=== PATIENT | male | born 1945 | race Caucasian/White ===

== ENCOUNTER 2017-02-08 07:41 | Day surgery (SDC) | payer BC ==
--- NOTE | 2017-02-07 21:45 | Pre-op HX & Phy Repo 2 SIG ---
DATE OF ADMISSION: 02/08/2017 PERTINENT HISTORY: The patient os a 71-year-old male with history of several months of increasing left inguinal hernia bulge with some pain. No signs or symptoms suggestive of small bowel obstruction. For that reason, his attending physician, Dr. Curry referred to me for evaluation and surgical care. PAST MEDICAL HISTORY: Pertinent for HIV, viral load is undetectable, T-cells are over 500 and history of hypertension. MEDICATIONS: Levothyroxine 75 mcg once a day, Epzicom 600-300 mg once a day, Norvir 100 mg two tabs a day, tamsulosin 0.4 mg once a day, Crestor 40 mg once a day, lisinopril 20 mg once a day, hydrochlorothiazide 12.5 mg once a day, compounded testosterone daily topical use in the morning, aspirin 81 mg daily and Lexiva 700 mg three times a day. PHYSICAL EXAMINATION: GENERAL: Well-developed middle-aged male, in no distress. VITAL SIGNS: Blood pressure was 100/60, temperature is 97.8 degrees, pulse is 70, and respirations 18. Weight 132 pounds. Height 66 inches. HEENT: Normal. NECK: Supple. LUNGS: Clear. HEART: Rhythmic and regular. No murmurs. No rubs. ABDOMEN: Soft and flat. Bowel sounds are normoactive. There is a reducible left inguinal hernia. GENITALIA: Normal male. Both testes descended. Rectal normal tone. No masses. Heme-negative stool. EXTREMITIES: Good range of motion. No edema or cyanosis. LABORATORY AND DIAGNOSTIC DATA: Electrocardiogram is left anterior fascicular block and poor R-wave progression, similar to prior EKGs. Laboratory analysis from 12/22/2016 is within normal limits. IMPRESSION: 1. Left inguinal hernia. 2. Human immunodeficiency virus infection. 3. Hypertension. PLAN: The patient is admitted to undergo an outpatient repair of a left inguinal hernia. He understands the nature of the procedure, the indications, risks, the benefits, and the possible complications and he wishes to proceed. Bari Porter M.D. DR: GUILLERMINA JOB#: [id number] CC:
[2017-02-08] VITALS (7 sets, daily range): BP systolic 112–140; BP diastolic 52–68
[~2017-02-08] VITALS: Ht 167.6 cm; Wt 59.0 kg
[2017-02-08] MEDS ORDERED: LEVOTHYROXINE75 MCG ORAL (08:44)
[2017-02-08] MEDS ORDERED: TAMSULOSIN HCL0.4 MG ORAL (08:44)
[2017-02-08] MEDS ORDERED: CENTRUM SILVER1 EAC4 PO (08:44)
[2017-02-08] MEDS ORDERED: CRESTOR40 MG ORAL (08:44)
[2017-02-08] MEDS ORDERED: XALATAN2.5 ML LEFT EYE (08:44)
[2017-02-08] MEDS ORDERED: FISH OIL CAP1000 MG ORAL (08:44)
[2017-02-08] MEDS ORDERED: ABACAVIR-LAMIV1 EAC1 PO (08:44)
[2017-02-08] MEDS ORDERED: NORVIR100 MG ORAL (08:44)
[2017-02-08] MEDS ORDERED: LEXIVA700 MG ORAL (08:44)
[2017-02-08] MEDS ORDERED: HYDROCHLOROTH12.5 M2 ORAL (08:44)
[2017-02-08] MEDS ORDERED: LISINOPRIL20 MG ORAL (08:44)
[2017-02-08] MEDS ORDERED: CALCIUM500 M2 PO (08:44)
[2017-02-08] MEDS ORDERED: GLUCOSAMIN-CHO1 EAC1 PO (08:44)
[2017-02-08] MEDS ORDERED: VITAMIN D400 INTLU ORAL (08:44)
[2017-02-08] MEDS ORDERED: LR 1000ml 1,000 ML IVLG SCH (08:55)
[2017-02-08] MEDS ORDERED: Ketorolac 60mg Inj IV PRN (09:00)
[2017-02-08] MEDS ORDERED: Ketorolac 30mg Inj IV PRN (09:00)
[2017-02-08] MEDS ORDERED: Hydromorphone 0.5mg/0.5ml inj IVP PRN (09:00)
[2017-02-08] MEDS ORDERED: Norco 7.5mg/325mg tab ORAL PRN (09:00)
[2017-02-08] MEDS ORDERED: Norco 5mg/325mg tab ORAL PRN (09:00)
[2017-02-08] MEDS ORDERED: Meperidine 25mg/0.5ml Inj IV PRN (09:00)
[2017-02-08] MEDS ORDERED: LORazepam Inj 2mg/ml 1ml IV PRN (09:00)
[2017-02-08] MEDS ORDERED: Metoclopramide 10mg/2ml Inj IVP PRN (09:00)
[2017-02-08] MEDS ORDERED: Oxycodone/Acetaminophen 5-325 ORAL PRN (09:00)
[2017-02-08] MEDS ORDERED: LR 1000ml 1,000 ML IV SCH (09:00)
[2017-02-08] MEDS ORDERED: DiphenhydrAMINE 50mg/ml Inj IVP PRN (09:00)
[2017-02-08] MEDS ORDERED: Midazolam 2mg/2ml Inj IVP PRN (09:00)
[2017-02-08] MEDS ORDERED: fentaNYL 100 mcg/2 mL IV PRN (09:00)
[2017-02-08] MEDS ORDERED: Atropine Inj 1mg/10ml Syr IV PRN (09:00)
--- NOTE | 2017-02-08 09:01 | Anethesia Preoperative Eval ---
Anesthesia Pre-op PMH/ROS General Date of Evaluation: February 08, 2017 Time of Evaluation: 09:59 Anesthesiologist: Kel ASA Score: ASA 3 Mallampati Score Class I : Soft palate, uvula, fauces, pillars visible Class II: Soft palate, uvula, fauces visible Class III: Soft palate, base of uvula visible Class IV: Only hard plate visible Mallampati Classification: Class II Surgeon: Charlotte Diagnosis: L Inguinal Hernia Surgical Procedure: L Inguinal Hernia Repair Anesthesia History: none Family History: no anesthesia problems Allergies: Coded Allergies: PENICILLINS (Verified Allergy, Mild, 02/08/17) mouth sores Uncoded Allergies: pomegranate juice (Allergy, Severe, 02/08/17) tongue became swollen, could not breathe Medications: see eMAR Past Medical History Cardiovascular: Reports: HTN, other - HL Endocrine: Reports: hypothyroidism HEENT: Reports: other - Detached Retina, OS Hematology/Immune: Reports: other - HIV, Squamous Cell CA, Basal Cell CA PSxH Narrative: RIHR, Abd SX Anesthesia Pre-op Phys. Exam Physician Exam Last Vital Signs Date Time Temp Pulse Resp B/P Pulse Ox O2 Delivery O2 Flow Rate FiO2 02/08/17 08:32 98.2 62 21 140/68 100 Room Air Constitutional: NAD Neurologic: CN 2-12 intact Cardiovascular: RRR Respiratory: CTA Gastrointestinal: S/NT/ND Airway Exam Mallampati Score: Class II MO: full ROM: limited Teeth: intact Anesthesia Pre-op A/P Risk Assessment & Plan Assessment: ASA 3 Plan: GA, Glidescope Status Change Before Surgery: No Pre-Antibiotics Dru Gram Ancef IV Given Within 1 Hr of Incision: Yes Time Given: 10:16 Osvaldo Begum MD February 08, 2017 09:01
[2017-02-08] MEDS ORDERED: Bupivacaine w/Epi 0.25% 30ml Vial INJ ONE (09:28)
[2017-02-08] MEDS ORDERED: LR 1000ml ONE (10:00)
[2017-02-08] MEDS ORDERED: Dexamethasone 4mg/ml vial ONE (10:00)
[2017-02-08] MEDS ORDERED: Propofol 10mg/ml 20ml IV ONE (10:00)
[2017-02-08] MEDS ORDERED: Sterile Water Irrig 1000ml IRRIG ONE (10:00)
[2017-02-08] MEDS ORDERED: Nimbex 2mg/ml Inj 10ML IVP ONE (10:00)
[2017-02-08] MEDS ORDERED: NS Irrig 1000ml ONE (10:00)
[2017-02-08] MEDS ORDERED: Glycopyrrolate 0.2mg/ml 1ml Vial ONE (10:00)
[2017-02-08] MEDS ORDERED: Lidocaine 1% MPF 10mg/ml 5ml ONE (10:00)
[2017-02-08] MEDS ORDERED: fentaNYL 100 mcg/2 mL IV ONE (10:00)
[2017-02-08] MEDS ORDERED: Neostigmine 1mg/ml 10ml Inj ONE (10:00)
[2017-02-08] MEDS ORDERED: Midazolam 2mg/2ml Inj ONE (10:00)
--- NOTE | 2017-02-08 10:03 | Immediate Post-Op Evaluation ---
Immediate Post-Op Evalulation Immediate Post-Op Evalulation Procedure: L Inguinal Hernia Repair Date of Evaluation: February 08, 2017 Time of Evaluation: 11:30 IV Fluids: 800 LR Blood Products: 0 Estimated Blood Loss: 5 Urinary Output: 0 Blood Pressure Systolic: 122 Blood Pressure Diastolic: 60 Pulse Rate: 89 Respiratory Rate: 16 O2 Sat by Pulse Oximetry: 99 Temperature (Fahrenheit): 98 Pain Score (1-10): 2 Nausea: No Vomiting: No Complications 0 Patient Status: awake, reacts, patent, extubated, none Hydration Status: adequate Dru Gram Ancef IV Given Within 1 Hr of Incision: Yes Time Given: 10:16 Osvaldo Begum MD February 08, 2017 10:03
--- NOTE | 2017-02-08 10:04 | 48 Hour Post Anesthesia Eval ---
Post Anesthesia Evaluation Procedure: L Inguinal Hernia Repair Date of Evaluation: February 08, 2017 Time of Evaluation: 13:42 Blood Pressure Systolic: 134 0: 68 Pulse Rate: 62 Respiratory Rate: 18 Temperature (Fahrenheit): 98.2 O2 Sat by Pulse Oximetry: 100 Airway: patent Nausea: No Vomiting: No Pain Intensity: 1 Hydration Status: adequate Cardiopulmonary Status: Stable Mental Status/LOC: patient returned to baseline Follow-up Care/Observations: 0 Post-Anesthesia Complications: 0 Follow-up care needed: ready to discharge Osvaldo Begum MD February 08, 2017 10:04
--- NOTE | 2017-02-08 10:10 | Pre-Procedure Note/Attestation ---
Pre-Procedure Note/Attestation Complete Prior to Procedure Planned Procedure: left Procedure Narrative: repair of left inguinal hernia Attestation I attest that I discussed the nature of the procedure; its benefits; risks and complications; and alternatives (and the risks and benefits of such alternatives ), prior to the procedure, with the patient (or the patient's legal in store representative). I attest that, if there was a reasonable possibility of needing a blood transfusion, the patient (or the patient's legal in store representative) was given the [facility] standardized written summary, pursuant to the Ralf Donita Blood Safety Act ([place] Health and Safety Code # 1645, as amended). I attest that I re-evaluated the patient just prior to the surgery and that there has been no change in the patient's H&P, except as documented below: SAYRA BUNN February 08, 2017 10:10
--- NOTE | 2017-02-08 11:23 | Brief Operative Note ---
Immediate Post Operative Note Operative Note Pre-op Diagnosis: left inguinal hernia Procedure: repair of left inguinal hernia Post-op Diagnosis: same as pre-op Findings: other - indirect and direct hernias Surgeon: emelina Anesthesiologist: alberto Anesthesia: general Specimen: yes - hernia sac Complications: none Condition: stable Estimated Blood Loss: minimal Drains: none Implant(s) used?: Yes - prolite mesh SAYRA BUNN February 08, 2017 11:22
[2017-02-08] MEDS ORDERED: Tylenol #3 tab (300mg/30mg) ORAL PRN (12:40)
[2017-02-08] MEDS ORDERED: HYDROmorphone 1mg/ml Carpuject SUBQ PRN (16:01)
--- NOTE | 2017-02-09 12:46 | Operative Note - Dictated ---
DATE OF OPERATION: 02/08/2017 SURGEON: Bari Porter M.D. RN ANESTHESIOLOGY: None. ANESTHESIOLOGIST: Osvaldo Begum M.D. ANESTHESIA: General. PREOPERATIVE DIAGNOSIS: Left inguinal hernia. POSTOPERATIVE DIAGNOSIS: Left inguinal hernia. NAME OF OPERATION: Repair of left inguinal hernia with Prolene mesh. FINDINGS AND INDICATIONS: The patient is a very pleasant, 71-year-old male with a history of progressively enlarging and painful left inguinal hernia, which is reducible. The patient came in to his attending physician, who referred him to me for evaluation of surgery. A surgery indeed a combined direct and indirect hernias with moderate-sized indirect inguinal hernia sac and a moderate-sized direct inguinal hernia. Operative procedure was done uneventfully as described below. PROCEDURE: With the patient lying in the supine position on the operating table, under general anesthesia with the entire left lower abdominal region was prepped and draped in usual sterile fashion with Betadine. An oblique inguinal incision was carried out following skin lines subcutaneous tissues were divided, the external oblique aponeurosis was identified and opened in the direction of its fibers. The ilioinguinal nerve was then carefully identified, dissected medially. The cord was isolated and skeletonized and the hernia sac was then carefully dissected free all the way to the internal ring and ligated with 2-0 Vicryl transfixation suture and amputated and sent to pathology. The area was irrigated. Hemostasis was adequate. The direct inguinal hernia sac was imbricated with 0 Vicryl material and the pelvic floor was then reinforced by approximating the shelving edge of the inguinal ligament to the combined aponeurosis of the internal oblique and transversus abdominis muscles using a continuous 2-0 Prolene suture. A slit was made on the lateral aspect of the mesh to allow the cord structures to go through and the Prolene sutures snugly ligated approximating both at the lateral edges and recreating a nice internal ring. The area was irrigated. Hemostasis was double checked with cautery and the nerve and the port was then replaced anatomically and the external oblique aponeurosis was closed with 3-0 Vicryl suture and the skin with 4-0 Vicryl subcuticular sutures and Steri-Strips. Marcaine 0.5% with epinephrine 25 mL was injected for long-acting local anesthetic. The patient procedure well. ESTIMATED BLOOD LOSS: Less than 5 mL. COUNTS: Sponge and needle counts were correct. CONDITION: He went to the recovery room in stable condition. Bari Porter M.D. DR: Danii JOB#: [id number] CC:
== END 2017-02-08 12:40 | disposition home or self-care (01) ==
LOC: SUR 07:41
DX: K40.90 Unilateral inguinal hernia, without obstruction or gangrene, not specified as recurrent (principal); I10 Essential (primary) hypertension; E78.5 Hyperlipidemia, unspecified; E03.9 Hypothyroidism, unspecified; Z85.828 Personal history of other malignant neoplasm of skin; Z79.82 Long term (current) use of aspirin; Z88.0 Allergy status to penicillin; Z91.018 Allergy to other foods
CPT/HCPCS: 49505; C1781; J0690; J1100; J2250; J2405; J2704; J2710; J3010; J7120; 94003; 94150